=== PATIENT | male | born 1935 | race Caucasian/White ===

== ENCOUNTER 2019-06-28 10:33 | Inpatient (IN) ==
[2019-06-28] MEDS ORDERED: Dextrose Gel 15 GM/37.5 ML TUBE PO PRN ×2 (16:52)
[2019-06-28] MEDS ORDERED: *HR* Dextrose 50 % in Water (Vial) 50 ML VIAL IVP PRN (16:52)
[2019-06-28] MEDS ORDERED: D5% in Water 1,000 ML IVC PRN (16:52)
[2019-06-28] MEDS ORDERED: Warfarin perPT PO PRN (18:00)
[2019-06-28] MEDS: *HR* Metformin 500 MG TABLET PO SCH (18:02)
[2019-06-28] MEDS ORDERED: *HR* Warfarin 3 MG TABLET PO ONE (20:15)
[2019-06-28] MEDS: Lisinopril 20 MG TABLET PO SCH (20:44)
[2019-06-28] MEDS: Ascorbic Acid 500 MG TABLET PO SCH (20:44)
[2019-06-28] MEDS: *HR* Glimepiride 2 MG TABLET PO SCH (20:44)
[2019-06-28] MEDS: Insulin LISPRO 300 UNITS/3 ML VIAL SQ SCH (20:46)
[2019-06-28] MEDS: Patient Taking Own Medication 1 EACH PO SCH (21:43)
[2019-06-29 06:01] LABS: Basophils % 0.1 %; Eosinophils % 0.2 %; Hematocrit 28.4 % (37.5-50.1); Hemoglobin 9.2 g/dL (12.9-16.9); Lymphocytes # 1.3 K/mcL (0.6-4.6); Lymphocytes % 8.1 %; Mean Corpuscular HGB Conc 32.4 g/dL (31.6-35.5); Mean Corpuscular Hemoglobin 31.5 pg (28.0-33.3); Mean Corpuscular Volume 97.3 fL (83.0-100.0); Mean Platelet Volume 11.1 fL (9.4-12.4); Monocytes # 1.1 K/mcL (0.0-1.3); Monocytes % 6.9 %; Neutrophils # 13.3 K/mcL (1.6-8.9); Platelet Count 225 K/mcL (140-400); Red Blood Count 2.92 M/mcL (4.19-5.50); Red Cell Distribution Width 12.5 % (11.5-14.5); Segmented Neutrophils % 83.7 %; White Blood Count 15.9 K/mcL (4.3-11.1)
[2019-06-29 06:08] LABS: INR 1.4; Prothrombin Time 15.4 Seconds (9.4-12.1)
[2019-06-29 06:19] LABS: BUN/Creatinine Ratio 15 (6-26); Blood Urea Nitrogen 13 mg/dL (8-23); Calcium 8.2 mg/dL (8.6-10.3); Carbon Dioxide 32 mEq/L (23-29); Chloride 99 mEq/L (98-107); Glucose 171 mg/dL (70-105); Magnesium 1.8 mg/dL (1.6-2.6); Osmolality,Calculated 288 (280-300); Potassium 3.9 mEq/L (3.5-5.1); Sodium 137 mEq/L (136-145); eGFR For African Americans > 60 (> 60); eGFR For Non-African Americans > 60 (> 60)
[2019-06-29] MEDS: Aspirin 81 MG TAB.CHEW PO SCH (08:15)
[2019-06-29] MEDS: Cholecalciferol (D-3) 1,000 UNIT (25MCG) TABLET PO SCH (08:15)
[2019-06-29] MEDS: Lisinopril 20 MG TABLET PO SCH ×2 (08:15→21:23)
[2019-06-29] MEDS: amLODIPine 5 MG TABLET PO SCH (08:15)
[2019-06-29] MEDS: *HR* Metformin 500 MG TABLET PO SCH ×2 (08:15→17:10)
[2019-06-29] MEDS: *HR* Glimepiride 2 MG TABLET PO SCH ×2 (08:15→21:23)
[2019-06-29] MEDS: Ascorbic Acid 500 MG TABLET PO SCH ×2 (08:16→21:23)
[2019-06-29] MEDS: Patient Taking Own Medication 1 EACH PO SCH ×2 (08:17→21:23)
[2019-06-29] MEDS: Insulin LISPRO 300 UNITS/3 ML VIAL SQ SCH ×4 (08:18→21:25)
[2019-06-29 09:01] LABS: Estimated Average Glucose 258 mg/dl
[2019-06-29] MEDS: Ondansetron ODT 4 MG TAB.RAPDIS SL PRN (14:44)
[2019-06-29] MEDS ORDERED: *HR* Warfarin 5 MG TABLET PO ONE (18:00)
[2019-06-30 05:27] LABS: INR 1.4; Prothrombin Time 16.2 Seconds (9.4-12.1)
[2019-06-30] MEDS: Ascorbic Acid 500 MG TABLET PO SCH ×2 (08:50→23:45)
[2019-06-30] MEDS: amLODIPine 5 MG TABLET PO SCH (08:50)
[2019-06-30] MEDS: Cholecalciferol (D-3) 1,000 UNIT (25MCG) TABLET PO SCH (08:50)
[2019-06-30] MEDS: *HR* Metformin 500 MG TABLET PO SCH ×2 (08:50→17:58)
[2019-06-30] MEDS: *HR* Glimepiride 2 MG TABLET PO SCH ×2 (08:50→23:45)
[2019-06-30] MEDS: Aspirin 81 MG TAB.CHEW PO SCH (08:51)
[2019-06-30] MEDS: Patient Taking Own Medication 1 EACH PO SCH ×2 (08:53→23:47)
[2019-06-30] MEDS: Insulin LISPRO 300 UNITS/3 ML VIAL SQ SCH ×4 (08:53→23:46)
[2019-06-30] MEDS: Lisinopril 20 MG TABLET PO SCH ×2 (08:54→23:45)
[2019-06-30] MEDS ORDERED: Bisacodyl 10 MG RECTAL SUPPOSITORY RC PRN (08:55)
[2019-06-30] MEDS ORDERED: *HR* Metformin 500 MG TABLET PO ONE (10:15)
[2019-06-30] MEDS: Sennosides 8.6 MG TABLET PO SCH ×2 (15:42→23:45)
[2019-06-30] MEDS: Ondansetron ODT 4 MG TAB.RAPDIS SL PRN (15:54)
[2019-06-30] MEDS ORDERED: *HR* Warfarin 7.5 MG TABLET PO ONE (18:00)
[2019-07-01] MEDS: *HR* HYDROcodone/Acet 5/325 mg TABLET PO PRN (03:24)
[2019-07-01] MEDS: Ondansetron ODT 4 MG TAB.RAPDIS SL PRN ×2 (03:24→12:02)
[2019-07-01] MEDS: Insulin LISPRO 300 UNITS/3 ML VIAL SQ SCH ×4 (08:50→21:40)
[2019-07-01] MEDS: Aspirin 81 MG TAB.CHEW PO SCH (09:02)
[2019-07-01] MEDS: Sennosides 8.6 MG TABLET PO SCH (09:02)
[2019-07-01] MEDS: Ascorbic Acid 500 MG TABLET PO SCH ×2 (09:02→21:40)
[2019-07-01] MEDS: *HR* Glimepiride 2 MG TABLET PO SCH ×2 (09:02→21:40)
[2019-07-01] MEDS: Cholecalciferol (D-3) 1,000 UNIT (25MCG) TABLET PO SCH (09:02)
[2019-07-01] MEDS: *HR* Metformin 500 MG TABLET PO SCH ×2 (09:02→18:33)
[2019-07-01] MEDS: Lisinopril 20 MG TABLET PO SCH ×2 (09:03→21:40)
[2019-07-01] MEDS: amLODIPine 5 MG TABLET PO SCH (09:03)
[2019-07-01] MEDS: Patient Taking Own Medication 1 EACH PO SCH (09:09)
[2019-07-01 10:07] LABS: INR 1.6; Prothrombin Time 18.2 Seconds (9.4-12.1)
[2019-07-01 12:42] LABS: Basophils % 0.1 %; Eosinophils % 0.3 %; Hematocrit 29.5 % (37.5-50.1); Hemoglobin 9.4 g/dL (12.9-16.9); Immature Granulocytes % 0.7 % (0-4); Lymphocytes # 0.9 K/mcL (0.6-4.6); Lymphocytes % 6.5 %; Mean Corpuscular HGB Conc 31.9 g/dL (31.6-35.5); Mean Corpuscular Volume 97.4 fL (83.0-100.0); Monocytes % 7.4 %; Neutrophils # 11.9 K/mcL (1.6-8.9); Platelet Count 290 K/mcL (140-400); Red Blood Count 3.03 M/mcL (4.19-5.50)
[2019-07-01] MEDS ORDERED: *HR* Warfarin 5 MG TABLET PO ONE (18:00)
[2019-07-02] MEDS: Patient Taking Own Medication 1 EACH PO SCH ×3 (01:27→21:23)
[2019-07-02] MEDS: Sennosides 8.6 MG TABLET PO SCH ×3 (01:28→21:23)
[2019-07-02 05:36] LABS: INR 2.3; Prothrombin Time 26.5 Seconds (9.4-12.1)
[2019-07-02] MEDS: Ondansetron ODT 4 MG TAB.RAPDIS SL PRN ×3 (07:28→23:58)
[2019-07-02] MEDS: Insulin LISPRO 300 UNITS/3 ML VIAL SQ SCH ×4 (07:38→21:22)
[2019-07-02] MEDS: Aspirin 81 MG TAB.CHEW PO SCH (09:03)
[2019-07-02] MEDS: amLODIPine 5 MG TABLET PO SCH (09:03)
[2019-07-02] MEDS: Lisinopril 20 MG TABLET PO SCH ×2 (09:04→21:22)
[2019-07-02] MEDS: *HR* Metformin 500 MG TABLET PO SCH ×2 (09:06→17:33)
[2019-07-02] MEDS: *HR* Glimepiride 2 MG TABLET PO SCH ×2 (09:07→21:22)
[2019-07-02] MEDS: Ascorbic Acid 500 MG TABLET PO SCH ×2 (09:07→21:22)
[2019-07-02] MEDS: Cholecalciferol (D-3) 1,000 UNIT (25MCG) TABLET PO SCH (09:07)
[2019-07-02] MEDS: *HR* HYDROcodone/Acet 5/325 mg TABLET PO PRN (14:29)
[2019-07-02 17:07] LABS: Basophils % 0.2 %; Eosinophils % 0.3 %; Hematocrit 25.7 % (37.5-50.1); Hemoglobin 8.3 g/dL (12.9-16.9); Immature Granulocytes % 0.5 % (0-4); Lymphocytes # 1.2 K/mcL (0.6-4.6); Lymphocytes % 10.7 %; Mean Corpuscular HGB Conc 32.3 g/dL (31.6-35.5); Mean Corpuscular Hemoglobin 31.4 pg (28.0-33.3); Mean Corpuscular Volume 97.3 fL (83.0-100.0); Mean Platelet Volume 10.2 fL (9.4-12.4); Monocytes # 0.9 K/mcL (0.0-1.3); Monocytes % 7.7 %; Neutrophils # 8.9 K/mcL (1.6-8.9); Platelet Count 294 K/mcL (140-400); Red Blood Count 2.64 M/mcL (4.19-5.50); Red Cell Distribution Width 13.2 % (11.5-14.5); Segmented Neutrophils % 80.6 %
[2019-07-02] MEDS ORDERED: *HR* Warfarin 4 MG TABLET PO ONE (18:00)
[2019-07-03 05:57] LABS: Basophils % 0.2 %; Eosinophils % 0.4 %; Hematocrit 26.5 % (37.5-50.1); Hemoglobin 8.5 g/dL (12.9-16.9); Immature Granulocytes % 0.5 % (0-4); Lymphocytes # 1.3 K/mcL (0.6-4.6); Lymphocytes % 11.7 %; Mean Corpuscular HGB Conc 32.1 g/dL (31.6-35.5); Mean Corpuscular Hemoglobin 31.1 pg (28.0-33.3); Mean Corpuscular Volume 97.1 fL (83.0-100.0); Mean Platelet Volume 10.5 fL (9.4-12.4); Monocytes # 0.9 K/mcL (0.0-1.3); Monocytes % 8.5 %; Neutrophils # 8.4 K/mcL (1.6-8.9); Platelet Count 308 K/mcL (140-400); Red Blood Count 2.73 M/mcL (4.19-5.50); Red Cell Distribution Width 13.2 % (11.5-14.5); Segmented Neutrophils % 78.7 %; White Blood Count 10.7 K/mcL (4.3-11.1)
[2019-07-03 06:00] LABS: INR 2.7; Prothrombin Time 30.7 Seconds (9.4-12.1)
[2019-07-03 06:12] LABS: BUN/Creatinine Ratio 19 (6-26); Blood Urea Nitrogen 19 mg/dL (8-23); Calcium 8.2 mg/dL (8.6-10.3); Carbon Dioxide 30 mEq/L (23-29); Chloride 99 mEq/L (98-107); Glucose 132 mg/dL (70-105); Osmolality,Calculated 284 (280-300); Potassium 4.4 mEq/L (3.5-5.1); Sodium 135 mEq/L (136-145); eGFR For African Americans > 60 (> 60); eGFR For Non-African Americans > 60 (> 60)
[2019-07-03] MEDS: Insulin LISPRO 300 UNITS/3 ML VIAL SQ SCH ×4 (07:57→20:57)
[2019-07-03] MEDS: Ondansetron ODT 4 MG TAB.RAPDIS SL PRN ×2 (08:27→20:10)
[2019-07-03] MEDS: Ascorbic Acid 500 MG TABLET PO SCH ×2 (09:41→20:10)
[2019-07-03] MEDS: *HR* Metformin 500 MG TABLET PO SCH ×2 (09:41→16:46)
[2019-07-03] MEDS: Cholecalciferol (D-3) 1,000 UNIT (25MCG) TABLET PO SCH (09:41)
[2019-07-03] MEDS: *HR* Glimepiride 2 MG TABLET PO SCH (09:41)
[2019-07-03] MEDS: Sennosides 8.6 MG TABLET PO SCH ×2 (09:41→20:10)
[2019-07-03] MEDS: Lisinopril 20 MG TABLET PO SCH ×2 (09:41→20:10)
[2019-07-03] MEDS: Aspirin 81 MG TAB.CHEW PO SCH (09:41)
[2019-07-03] MEDS: amLODIPine 5 MG TABLET PO SCH (09:41)
[2019-07-03] MEDS: Patient Taking Own Medication 1 EACH PO SCH ×2 (09:44→21:00)
[2019-07-03] MEDS: 0.9 % Sodium Chloride 1,000 ML IVC SCH (12:54)
[2019-07-03] MEDS ORDERED: *HR* Warfarin 3 MG TABLET PO ONE (18:00)
[2019-07-03] MEDS: Sucralfate 1 GM TABLET PO SCH (20:10)
[2019-07-03 21:23] LABS: Amorphous Sediment,Urine Few per hpf (Few); Bilirubin,Urine Negative (Negative); Blood,Urine Negative (Negative); Clarity,Urine Slightly Cloudy (Clear); Color,Urine Yellow (Yellow); Glucose,Urine (UA) 100 mg/dL (Normal); Ketones,Urine Negative (Negative); Leukocyte Esterase,Urine Negative (Negative); Nitrite,Urine Negative (Negative); Protein,Urine Trace mg/dL (Neg-Trace); Specific Gravity,Urine 1.025 (1.010-1.025)
[2019-07-04] MEDS: 0.9 % Sodium Chloride 1,000 ML IVC SCH ×2 (03:37→15:03)
[2019-07-04 05:32] LABS: Hematocrit 26.8 % (37.5-50.1); Hemoglobin 8.4 g/dL (12.9-16.9); Mean Corpuscular HGB Conc 31.3 g/dL (31.6-35.5); Mean Corpuscular Hemoglobin 30.8 pg (28.0-33.3); Mean Corpuscular Volume 98.2 fL (83.0-100.0); Mean Platelet Volume 10.3 fL (9.4-12.4); Platelet Count 320 K/mcL (140-400); Red Blood Count 2.73 M/mcL (4.19-5.50); Red Cell Distribution Width 13.2 % (11.5-14.5); White Blood Count 8.8 K/mcL (4.3-11.1)
[2019-07-04 05:36] LABS: INR 3.1; Prothrombin Time 35.8 Seconds (9.4-12.1)
[2019-07-04 05:49] LABS: Alanine Aminotransferase 13 Units/L (7-52); Albumin 2.7 g/dL (3.5-5.7); Albumin/Globulin Ratio 0.8 (1.1-2.2); Alkaline Phosphatase 107 Units/L (34-104); Aspartate Amino Transferase 13 Units/L (13-39); BUN/Creatinine Ratio 18 (6-26); Bilirubin,Total 0.3 mg/dL (0.3-1.0); Blood Urea Nitrogen 19 mg/dL (8-23); Calcium 8.2 mg/dL (8.6-10.3); Carbon Dioxide 33 mEq/L (23-29); Chloride 103 mEq/L (98-107); Globulin 3.3 g/dL (2.4-3.5); Glucose 125 mg/dL (70-105); Magnesium 1.8 mg/dL (1.6-2.6); Osmolality,Calculated 292 (280-300); Potassium 4.6 mEq/L (3.5-5.1); Sodium 139 mEq/L (136-145); eGFR For African Americans > 60 (> 60); eGFR For Non-African Americans > 60 (> 60)
[2019-07-04] MEDS: Sucralfate 1 GM TABLET PO SCH ×4 (06:03→22:35)
[2019-07-04] MEDS: Insulin LISPRO 300 UNITS/3 ML VIAL SQ SCH ×4 (08:00→22:31)
[2019-07-04] MEDS: Patient Taking Own Medication 1 EACH PO SCH ×2 (08:51→22:43)
[2019-07-04] MEDS: Pantoprazole 40 MG VIAL IVP SCH (08:51)
[2019-07-04] MEDS: Ondansetron ODT 4 MG TAB.RAPDIS SL PRN (08:52)
[2019-07-04] MEDS: Ascorbic Acid 500 MG TABLET PO SCH ×2 (10:19→22:35)
[2019-07-04] MEDS: Cholecalciferol (D-3) 1,000 UNIT (25MCG) TABLET PO SCH (10:19)
[2019-07-04] MEDS: Aspirin 81 MG TAB.CHEW PO SCH (10:40)
[2019-07-04] MEDS: Lisinopril 20 MG TABLET PO SCH ×2 (10:40→22:36)
[2019-07-04] MEDS: Sennosides 8.6 MG TABLET PO SCH ×2 (10:40→22:36)
[2019-07-04] MEDS: amLODIPine 5 MG TABLET PO SCH (10:40)
[2019-07-04] MEDS: Nystatin SUSP 5 ML UD.LIQ PO SCH ×2 (15:42→22:36)
[2019-07-04] MEDS: Doxycycline 100 MG CAPSULE PO SCH ×2 (15:42→22:34)
[2019-07-04] MEDS: *HR* HYDROcodone/Acet 5/325 mg TABLET PO PRN (22:37)
[2019-07-05 05:53] LABS: Prothrombin Time 34.3 Seconds (9.4-12.1)
[2019-07-05 05:55] LABS: Basophils % 0.4 %; Eosinophils # 0.1 K/mcL (0.0-0.6); Eosinophils % 1.4 %; Hematocrit 26.2 % (37.5-50.1); Hemoglobin 8.4 g/dL (12.9-16.9); Immature Granulocytes % 0.3 % (0-4); Lymphocytes % 12.1 %; Mean Corpuscular HGB Conc 32.1 g/dL (31.6-35.5); Mean Corpuscular Hemoglobin 31.1 pg (28.0-33.3); Mean Platelet Volume 10.5 fL (9.4-12.4); Monocytes # 0.9 K/mcL (0.0-1.3); Monocytes % 11.6 %; Neutrophils # 5.9 K/mcL (1.6-8.9); Platelet Count 334 K/mcL (140-400); Red Cell Distribution Width 13.3 % (11.5-14.5); Segmented Neutrophils % 74.2 %
[2019-07-05] MEDS: Lisinopril 20 MG TABLET PO SCH ×2 (08:47→22:01)
[2019-07-05] MEDS: Nystatin SUSP 5 ML UD.LIQ PO SCH ×4 (08:47→22:01)
[2019-07-05] MEDS: Sucralfate 1 GM TABLET PO SCH ×4 (08:47→21:59)
[2019-07-05] MEDS: Cholecalciferol (D-3) 1,000 UNIT (25MCG) TABLET PO SCH (08:47)
[2019-07-05] MEDS: Sennosides 8.6 MG TABLET PO SCH ×2 (08:47→22:02)
[2019-07-05] MEDS: Doxycycline 100 MG CAPSULE PO SCH ×2 (08:47→22:01)
[2019-07-05] MEDS: Aspirin 81 MG TAB.CHEW PO SCH (08:47)
[2019-07-05] MEDS: Ascorbic Acid 500 MG TABLET PO SCH ×2 (08:47→21:54)
[2019-07-05] MEDS: amLODIPine 5 MG TABLET PO SCH (08:47)
[2019-07-05] MEDS: Pantoprazole 40 MG VIAL IVP SCH (08:48)
[2019-07-05] MEDS: Patient Taking Own Medication 1 EACH PO SCH ×2 (08:48→22:02)
[2019-07-05] MEDS: Insulin LISPRO 300 UNITS/3 ML VIAL SQ SCH ×4 (08:48→21:58)
[2019-07-05] MEDS ORDERED: *HR* Warfarin 3 MG TABLET PO ONE (18:00)
[2019-07-05] MEDS: *HR* Glimepiride 2 MG TABLET PO SCH (21:57)
[2019-07-06 06:22] LABS: INR 3.2; Prothrombin Time 36.4 Seconds (9.4-12.1)
[2019-07-06] MEDS: Pantoprazole 40 MG VIAL IVP SCH (09:27)
[2019-07-06] MEDS: Doxycycline 100 MG CAPSULE PO SCH ×2 (09:27→21:28)
[2019-07-06] MEDS: Aspirin 81 MG TAB.CHEW PO SCH (09:27)
[2019-07-06] MEDS: Ascorbic Acid 500 MG TABLET PO SCH ×2 (09:27→21:28)
[2019-07-06] MEDS: Sennosides 8.6 MG TABLET PO SCH ×2 (09:28→21:27)
[2019-07-06] MEDS: Lisinopril 20 MG TABLET PO SCH ×2 (09:28→21:27)
[2019-07-06] MEDS: *HR* Glimepiride 2 MG TABLET PO SCH ×2 (09:28→21:27)
[2019-07-06] MEDS: Nystatin SUSP 5 ML UD.LIQ PO SCH ×4 (09:28→21:27)
[2019-07-06] MEDS: Cholecalciferol (D-3) 1,000 UNIT (25MCG) TABLET PO SCH (09:28)
[2019-07-06] MEDS: Sucralfate 1 GM TABLET PO SCH ×4 (09:28→21:28)
[2019-07-06] MEDS: amLODIPine 5 MG TABLET PO SCH (09:28)
[2019-07-06] MEDS: *HR* Metformin 500 MG TABLET PO SCH ×2 (09:28→17:34)
[2019-07-06] MEDS: Patient Taking Own Medication 1 EACH PO SCH ×2 (09:28→21:29)
[2019-07-06] MEDS: Insulin LISPRO 300 UNITS/3 ML VIAL SQ SCH ×4 (09:45→21:24)
[2019-07-06 12:16] LABS: Basophils % 0.2 %; Hematocrit 29.7 % (37.5-50.1); Hemoglobin 9.5 g/dL (12.9-16.9); Immature Granulocytes % 0.4 % (0-4); Lymphocytes # 0.6 K/mcL (0.6-4.6); Lymphocytes % 6.4 %; Mean Corpuscular Hemoglobin 31.5 pg (28.0-33.3); Mean Corpuscular Volume 98.3 fL (83.0-100.0); Mean Platelet Volume 10.5 fL (9.4-12.4); Monocytes # 0.7 K/mcL (0.0-1.3); Monocytes % 7.2 %; Neutrophils # 8.4 K/mcL (1.6-8.9); Platelet Count 397 K/mcL (140-400); Red Blood Count 3.02 M/mcL (4.19-5.50); Red Cell Distribution Width 13.4 % (11.5-14.5); Segmented Neutrophils % 85.8 %; White Blood Count 9.8 K/mcL (4.3-11.1)
[2019-07-06 12:29] LABS: BUN/Creatinine Ratio 21 (6-26); Blood Urea Nitrogen 27 mg/dL (8-23); Calcium 8.5 mg/dL (8.6-10.3); Carbon Dioxide 27 mEq/L (23-29); Chloride 98 mEq/L (98-107); Glucose 351 mg/dL (70-105); Osmolality,Calculated 295 (280-300); Potassium 4.4 mEq/L (3.5-5.1); Sodium 133 mEq/L (136-145); eGFR For African Americans > 60 (> 60); eGFR For Non-African Americans 52 (> 60)
[2019-07-07 05:48] LABS: INR 2.9; Prothrombin Time 33.2 Seconds (9.4-12.1)
[2019-07-07] MEDS: Sennosides 8.6 MG TABLET PO SCH ×2 (08:14→20:58)
[2019-07-07] MEDS: Cholecalciferol (D-3) 1,000 UNIT (25MCG) TABLET PO SCH (08:14)
[2019-07-07] MEDS: Sucralfate 1 GM TABLET PO SCH ×4 (08:15→20:58)
[2019-07-07] MEDS: Ascorbic Acid 500 MG TABLET PO SCH ×2 (08:15→20:58)
[2019-07-07] MEDS: Doxycycline 100 MG CAPSULE PO SCH ×2 (08:16→20:58)
[2019-07-07] MEDS: amLODIPine 5 MG TABLET PO SCH (08:17)
[2019-07-07] MEDS: *HR* Metformin 500 MG TABLET PO SCH ×2 (08:18→17:32)
[2019-07-07] MEDS: *HR* Glimepiride 2 MG TABLET PO SCH ×2 (08:19→20:58)
[2019-07-07] MEDS: Aspirin 81 MG TAB.CHEW PO SCH (08:19)
[2019-07-07] MEDS: Lisinopril 20 MG TABLET PO SCH ×2 (08:20→20:58)
[2019-07-07] MEDS: Insulin LISPRO 300 UNITS/3 ML VIAL SQ SCH ×4 (08:20→21:06)
[2019-07-07] MEDS: Nystatin SUSP 5 ML UD.LIQ PO SCH ×4 (08:20→20:58)
[2019-07-07] MEDS: Patient Taking Own Medication 1 EACH PO SCH ×2 (08:21→21:07)
[2019-07-07] MEDS: Ondansetron ODT 4 MG TAB.RAPDIS SL PRN (10:52)
[2019-07-07] MEDS ORDERED: *HR* Warfarin 3 MG TABLET PO ONE (18:00)
[2019-07-08 06:32] LABS: Prothrombin Time 34.7 Seconds (9.4-12.1)
[2019-07-08] MEDS: Sucralfate 1 GM TABLET PO SCH ×2 (06:40→11:52)
[2019-07-08] MEDS: Insulin LISPRO 300 UNITS/3 ML VIAL SQ SCH ×4 (08:56→20:54)
[2019-07-08] MEDS: Patient Taking Own Medication 1 EACH PO SCH ×2 (08:57→21:03)
[2019-07-08] MEDS: Aspirin 81 MG TAB.CHEW PO SCH (09:04)
[2019-07-08] MEDS: Nystatin SUSP 5 ML UD.LIQ PO SCH ×4 (09:04→21:04)
[2019-07-08] MEDS: *HR* Glimepiride 2 MG TABLET PO SCH ×2 (09:04→21:04)
[2019-07-08] MEDS: amLODIPine 5 MG TABLET PO SCH (09:04)
[2019-07-08] MEDS: Doxycycline 100 MG CAPSULE PO SCH ×2 (09:04→21:04)
[2019-07-08] MEDS: *HR* Metformin 500 MG TABLET PO SCH ×2 (09:04→17:20)
[2019-07-08] MEDS: Ascorbic Acid 500 MG TABLET PO SCH ×2 (09:05→21:04)
[2019-07-08] MEDS: Cholecalciferol (D-3) 1,000 UNIT (25MCG) TABLET PO SCH (09:05)
[2019-07-08] MEDS: Lisinopril 20 MG TABLET PO SCH ×2 (09:05→21:04)
[2019-07-08] MEDS: Sennosides 8.6 MG TABLET PO SCH (09:05)
[2019-07-08] MEDS ORDERED: Sennosides 8.6 MG TABLET PO PRN (13:31)
[2019-07-08] MEDS ORDERED: *HR* Warfarin 3 MG TABLET PO ONE (18:00)
[2019-07-08] MEDS: Ondansetron ODT 4 MG TAB.RAPDIS SL PRN (21:08)
[2019-07-09 05:33] LABS: Hematocrit 26.5 % (37.5-50.1); Hemoglobin 8.2 g/dL (12.9-16.9); Mean Corpuscular HGB Conc 30.9 g/dL (31.6-35.5); Mean Corpuscular Hemoglobin 30.3 pg (28.0-33.3); Mean Corpuscular Volume 97.8 fL (83.0-100.0); Mean Platelet Volume 9.9 fL (9.4-12.4); Platelet Count 374 K/mcL (140-400); Red Blood Count 2.71 M/mcL (4.19-5.50); Red Cell Distribution Width 13.7 % (11.5-14.5)
[2019-07-09 05:38] LABS: INR 2.7; Prothrombin Time 30.8 Seconds (9.4-12.1)
[2019-07-09 05:50] LABS: BUN/Creatinine Ratio 27 (6-26); Blood Urea Nitrogen 28 mg/dL (8-23); Calcium 8.5 mg/dL (8.6-10.3); Carbon Dioxide 31 mEq/L (23-29); Chloride 101 mEq/L (98-107); Glucose 73 mg/dL (70-105); Magnesium 1.6 mg/dL (1.6-2.6); Osmolality,Calculated 290 (280-300); Potassium 4.2 mEq/L (3.5-5.1); Sodium 138 mEq/L (136-145); eGFR For African Americans > 60 (> 60); eGFR For Non-African Americans > 60 (> 60)
[2019-07-09] MEDS: Insulin LISPRO 300 UNITS/3 ML VIAL SQ SCH ×4 (09:49→21:54)
[2019-07-09] MEDS: Nystatin SUSP 5 ML UD.LIQ PO SCH ×4 (09:50→22:00)
[2019-07-09] MEDS: amLODIPine 5 MG TABLET PO SCH (09:50)
[2019-07-09] MEDS: Aspirin 81 MG TAB.CHEW PO SCH (09:50)
[2019-07-09] MEDS: Ascorbic Acid 500 MG TABLET PO SCH ×2 (09:50→21:59)
[2019-07-09] MEDS: Doxycycline 100 MG CAPSULE PO SCH ×2 (09:50→21:59)
[2019-07-09] MEDS: *HR* Metformin 500 MG TABLET PO SCH ×2 (09:50→17:37)
[2019-07-09] MEDS: Cholecalciferol (D-3) 1,000 UNIT (25MCG) TABLET PO SCH (09:51)
[2019-07-09] MEDS: *HR* Glimepiride 2 MG TABLET PO SCH ×2 (09:51→22:00)
[2019-07-09] MEDS: Patient Taking Own Medication 1 EACH PO SCH ×2 (09:51→22:00)
[2019-07-09] MEDS: Lisinopril 20 MG TABLET PO SCH ×2 (09:51→21:59)
[2019-07-09 15:53] LABS: Estimated Average Glucose 240 mg/dl
[2019-07-09] MEDS ORDERED: *HR* Warfarin 3 MG TABLET PO ONE (18:00)
[2019-07-09] MEDS: Ondansetron ODT 4 MG TAB.RAPDIS SL PRN (22:06)
[2019-07-10 05:43] LABS: INR 2.4; Prothrombin Time 27.2 Seconds (9.4-12.1)
[2019-07-10] MEDS: Insulin LISPRO 300 UNITS/3 ML VIAL SQ SCH ×4 (07:52→23:03)
[2019-07-10] MEDS: Doxycycline 100 MG CAPSULE PO SCH ×2 (09:11→23:02)
[2019-07-10] MEDS: amLODIPine 5 MG TABLET PO SCH (09:11)
[2019-07-10] MEDS: Aspirin 81 MG TAB.CHEW PO SCH (09:11)
[2019-07-10] MEDS: Lisinopril 20 MG TABLET PO SCH ×2 (09:11→23:03)
[2019-07-10] MEDS: Nystatin SUSP 5 ML UD.LIQ PO SCH ×4 (09:11→23:00)
[2019-07-10] MEDS: Patient Taking Own Medication 1 EACH PO SCH ×2 (09:12→23:02)
[2019-07-10] MEDS: *HR* Metformin 500 MG TABLET PO SCH ×2 (09:12→17:20)
[2019-07-10] MEDS: *HR* Glimepiride 2 MG TABLET PO SCH ×2 (09:12→23:02)
[2019-07-10] MEDS: Cholecalciferol (D-3) 1,000 UNIT (25MCG) TABLET PO SCH (09:12)
[2019-07-10] MEDS: Ascorbic Acid 500 MG TABLET PO SCH ×2 (09:12→23:02)
[2019-07-10] MEDS: Ondansetron 4 MG/2 ML VIAL IVP PRN ×2 (13:09→20:22)
[2019-07-10] MEDS: Ondansetron ODT 4 MG TAB.RAPDIS SL PRN (17:32)
[2019-07-10] MEDS: Sucralfate 1 GM TABLET PO SCH ×2 (17:32→23:01)
[2019-07-10] MEDS ORDERED: *HR* Warfarin 3 MG TABLET PO ONE (18:00)
[2019-07-11] MEDS: Ondansetron ODT 4 MG TAB.RAPDIS SL PRN ×2 (05:19→23:11)
[2019-07-11] MEDS: *HR* HYDROcodone/Acet 5/325 mg TABLET PO PRN (05:19)
[2019-07-11 05:47] LABS: Hematocrit 26.3 % (37.5-50.1); Hemoglobin 8.3 g/dL (12.9-16.9); Mean Corpuscular HGB Conc 31.6 g/dL (31.6-35.5); Mean Corpuscular Hemoglobin 30.5 pg (28.0-33.3); Mean Corpuscular Volume 96.7 fL (83.0-100.0); Mean Platelet Volume 10.3 fL (9.4-12.4); Platelet Count 366 K/mcL (140-400); Red Blood Count 2.72 M/mcL (4.19-5.50); Red Cell Distribution Width 13.8 % (11.5-14.5); White Blood Count 6.9 K/mcL (4.3-11.1)
[2019-07-11 05:48] LABS: INR 2.5; Prothrombin Time 28.4 Seconds (9.4-12.1)
[2019-07-11 06:01] LABS: BUN/Creatinine Ratio 24 (6-26); Blood Urea Nitrogen 27 mg/dL (8-23); Calcium 8.5 mg/dL (8.6-10.3); Carbon Dioxide 31 mEq/L (23-29); Chloride 102 mEq/L (98-107); Glucose 67 mg/dL (70-105); Magnesium 1.6 mg/dL (1.6-2.6); Osmolality,Calculated 291 (280-300); Potassium 4.1 mEq/L (3.5-5.1); Sodium 139 mEq/L (136-145); eGFR For African Americans > 60 (> 60); eGFR For Non-African Americans > 60 (> 60)
[2019-07-11] MEDS: Insulin LISPRO 300 UNITS/3 ML VIAL SQ SCH ×4 (07:46→23:12)
[2019-07-11] MEDS: Sucralfate 1 GM TABLET PO SCH ×4 (08:48→23:10)
[2019-07-11] MEDS: Lisinopril 20 MG TABLET PO SCH ×2 (08:48→23:11)
[2019-07-11] MEDS: *HR* Metformin 500 MG TABLET PO SCH ×2 (08:48→17:27)
[2019-07-11] MEDS: Aspirin 81 MG TAB.CHEW PO SCH (08:48)
[2019-07-11] MEDS: amLODIPine 5 MG TABLET PO SCH (08:48)
[2019-07-11] MEDS: Cholecalciferol (D-3) 1,000 UNIT (25MCG) TABLET PO SCH (08:48)
[2019-07-11] MEDS: Patient Taking Own Medication 1 EACH PO SCH ×3 (08:48→23:12)
[2019-07-11] MEDS: Doxycycline 100 MG CAPSULE PO SCH (08:48)
[2019-07-11] MEDS: Ascorbic Acid 500 MG TABLET PO SCH ×2 (08:48→23:11)
[2019-07-11] MEDS: Nystatin SUSP 5 ML UD.LIQ PO SCH ×4 (08:48→23:10)
[2019-07-11] MEDS: *HR* Glimepiride 2 MG TABLET PO SCH ×2 (08:48→23:12)
[2019-07-11 09:37] LABS: % Iron Saturation 12 % (20-55); Iron 28 mcg/dL (65-175); Transferrin 168 mg/dL (203-362)
[2019-07-11 09:55] LABS: Folate 19.9 ng/mL (3.0-16.0)
[2019-07-11 17:09] LABS: Bilirubin,Urine Negative (Negative); Blood,Urine Negative (Negative); Clarity,Urine Clear (Clear); Color,Urine Yellow (Yellow); Glucose,Urine (UA) Normal (Normal); Ketones,Urine Negative (Negative); Leukocyte Esterase,Urine Negative (Negative); Nitrite,Urine Negative (Negative); Protein,Urine Trace mg/dL (Neg-Trace); Specific Gravity,Urine 1.025 (1.010-1.025); Urobilinogen,Urine Normal (Normal)
[2019-07-11] MEDS ORDERED: *HR* Warfarin 3 MG TABLET PO ONE (18:00)
[2019-07-12 05:26] LABS: INR 2.9; Prothrombin Time 32.5 Seconds (9.4-12.1)
[2019-07-12] MEDS: Sucralfate 1 GM TABLET PO SCH ×4 (06:42→21:09)
[2019-07-12] MEDS: Insulin LISPRO 300 UNITS/3 ML VIAL SQ SCH ×4 (07:55→21:09)
[2019-07-12] MEDS: Aspirin 81 MG TAB.CHEW PO SCH (09:16)
[2019-07-12] MEDS: Nystatin SUSP 5 ML UD.LIQ PO SCH ×4 (09:16→20:58)
[2019-07-12] MEDS: amLODIPine 5 MG TABLET PO SCH (09:17)
[2019-07-12] MEDS: Lisinopril 20 MG TABLET PO SCH ×2 (09:17→21:09)
[2019-07-12] MEDS: Cholecalciferol (D-3) 1,000 UNIT (25MCG) TABLET PO SCH (09:17)
[2019-07-12] MEDS: Ascorbic Acid 500 MG TABLET PO SCH ×2 (09:17→21:09)
[2019-07-12] MEDS: *HR* Glimepiride 2 MG TABLET PO SCH ×2 (09:17→21:10)
[2019-07-12] MEDS: Ondansetron ODT 4 MG TAB.RAPDIS SL PRN (09:17)
[2019-07-12] MEDS: *HR* Metformin 500 MG TABLET PO SCH ×2 (09:17→17:25)
[2019-07-12] MEDS: Patient Taking Own Medication 1 EACH PO SCH ×2 (09:17→21:10)
[2019-07-12] MEDS ORDERED: *HR* Warfarin 3 MG TABLET PO ONE (18:00)
[2019-07-13] MEDS: Sucralfate 1 GM TABLET PO SCH ×4 (05:33→21:43)
[2019-07-13 06:11] LABS: Prothrombin Time 33.9 Seconds (9.4-12.1)
[2019-07-13] MEDS: Insulin LISPRO 300 UNITS/3 ML VIAL SQ SCH ×4 (08:51→21:45)
[2019-07-13] MEDS: *HR* Glimepiride 2 MG TABLET PO SCH ×2 (10:22→21:42)
[2019-07-13] MEDS: Aspirin 81 MG TAB.CHEW PO SCH (10:22)
[2019-07-13] MEDS: Ascorbic Acid 500 MG TABLET PO SCH ×2 (10:22→21:43)
[2019-07-13] MEDS: amLODIPine 5 MG TABLET PO SCH (10:22)
[2019-07-13] MEDS: Lisinopril 20 MG TABLET PO SCH ×2 (10:22→21:43)
[2019-07-13] MEDS: Cholecalciferol (D-3) 1,000 UNIT (25MCG) TABLET PO SCH (10:22)
[2019-07-13] MEDS: Nystatin SUSP 5 ML UD.LIQ PO SCH ×4 (10:22→21:42)
[2019-07-13] MEDS: *HR* Metformin 500 MG TABLET PO SCH ×2 (10:22→19:01)
[2019-07-13] MEDS: Patient Taking Own Medication 1 EACH PO SCH ×2 (10:23→21:42)
[2019-07-13] MEDS ORDERED: *HR* Warfarin 1 MG TABLET PO ONE (18:00)
[2019-07-13] MEDS: Ondansetron ODT 4 MG TAB.RAPDIS SL PRN (19:02)
[2019-07-14 05:13] LABS: INR 2.7; Prothrombin Time 30.2 Seconds (9.4-12.1)
[2019-07-14] MEDS: Sucralfate 1 GM TABLET PO SCH ×4 (06:31→22:10)
[2019-07-14] MEDS: Insulin LISPRO 300 UNITS/3 ML VIAL SQ SCH ×4 (07:31→22:10)
[2019-07-14] MEDS: Cholecalciferol (D-3) 1,000 UNIT (25MCG) TABLET PO SCH (09:29)
[2019-07-14] MEDS: Lisinopril 20 MG TABLET PO SCH ×2 (09:29→22:09)
[2019-07-14] MEDS: Ascorbic Acid 500 MG TABLET PO SCH ×2 (09:29→22:09)
[2019-07-14] MEDS: *HR* Glimepiride 2 MG TABLET PO SCH ×2 (09:30→22:09)
[2019-07-14] MEDS: Patient Taking Own Medication 1 EACH PO SCH ×2 (09:30→22:10)
[2019-07-14] MEDS: *HR* Metformin 500 MG TABLET PO SCH (09:30)
[2019-07-14] MEDS: Aspirin 81 MG TAB.CHEW PO SCH (09:30)
[2019-07-14] MEDS: amLODIPine 5 MG TABLET PO SCH (09:30)
[2019-07-14] MEDS: Nystatin SUSP 5 ML UD.LIQ PO SCH ×2 (09:30→12:16)
[2019-07-14] MEDS: Ondansetron ODT 4 MG TAB.RAPDIS SL PRN (12:27)
[2019-07-14] MEDS ORDERED: *HR* Warfarin 3 MG TABLET PO ONE (18:00)
[2019-07-15] MEDS: Sucralfate 1 GM TABLET PO SCH ×4 (06:47→20:44)
[2019-07-15] MEDS: Ondansetron ODT 4 MG TAB.RAPDIS SL PRN (06:47)
[2019-07-15 07:38] LABS: INR 2.8; Prothrombin Time 31.7 Seconds (9.4-12.1)
[2019-07-15] MEDS: Insulin LISPRO 300 UNITS/3 ML VIAL SQ SCH ×4 (08:48→20:40)
[2019-07-15] MEDS: Ascorbic Acid 500 MG TABLET PO SCH ×2 (08:54→20:42)
[2019-07-15] MEDS: Cholecalciferol (D-3) 1,000 UNIT (25MCG) TABLET PO SCH (08:54)
[2019-07-15] MEDS: Aspirin 81 MG TAB.CHEW PO SCH (08:54)
[2019-07-15] MEDS: Lisinopril 20 MG TABLET PO SCH ×2 (08:54→20:42)
[2019-07-15] MEDS: amLODIPine 5 MG TABLET PO SCH (08:54)
[2019-07-15] MEDS: *HR* Glimepiride 2 MG TABLET PO SCH ×2 (08:54→20:42)
[2019-07-15] MEDS: Patient Taking Own Medication 1 EACH PO SCH ×2 (08:56→20:46)
[2019-07-15] MEDS ORDERED: Warfarin perPT PO PRN (12:05)
[2019-07-15] MEDS: *HR* Enoxaparin 100 MG/ML SYRINGE SQ SCH (17:56)
[2019-07-16 05:25] LABS: Hematocrit 25.9 % (37.5-50.1); Hemoglobin 8.2 g/dL (12.9-16.9); Mean Corpuscular HGB Conc 31.7 g/dL (31.6-35.5); Mean Corpuscular Hemoglobin 30.5 pg (28.0-33.3); Mean Corpuscular Volume 96.3 fL (83.0-100.0); Platelet Count 327 K/mcL (140-400); Red Blood Count 2.69 M/mcL (4.19-5.50); Red Cell Distribution Width 13.7 % (11.5-14.5); White Blood Count 6.9 K/mcL (4.3-11.1)
[2019-07-16 05:31] LABS: INR 2.3; Prothrombin Time 25.9 Seconds (9.4-12.1)
[2019-07-16 05:46] LABS: Alanine Aminotransferase 9 Units/L (7-52); Albumin 2.9 g/dL (3.5-5.7); Albumin/Globulin Ratio 0.9 (1.1-2.2); Alkaline Phosphatase 85 Units/L (34-104); Aspartate Amino Transferase 10 Units/L (13-39); BUN/Creatinine Ratio 26 (6-26); Bilirubin,Total 0.4 mg/dL (0.3-1.0); Blood Urea Nitrogen 23 mg/dL (8-23); Calcium 8.5 mg/dL (8.6-10.3); Carbon Dioxide 29 mEq/L (23-29); Chloride 104 mEq/L (98-107); Globulin 3.3 g/dL (2.4-3.5); Glucose 82 mg/dL (70-105); Magnesium 1.7 mg/dL (1.6-2.6); Osmolality,Calculated 291 (280-300); Potassium 3.9 mEq/L (3.5-5.1); Sodium 139 mEq/L (136-145); Total Protein 6.2 g/dL (6.4-8.9); eGFR For African Americans > 60 (> 60); eGFR For Non-African Americans > 60 (> 60)
[2019-07-16] MEDS: Ascorbic Acid 500 MG TABLET PO SCH ×2 (07:27→22:20)
[2019-07-16] MEDS: *HR* Enoxaparin 100 MG/ML SYRINGE SQ SCH ×2 (07:27→16:57)
[2019-07-16] MEDS: Cholecalciferol (D-3) 1,000 UNIT (25MCG) TABLET PO SCH (07:28)
[2019-07-16] MEDS: amLODIPine 5 MG TABLET PO SCH (07:28)
[2019-07-16] MEDS: Sucralfate 1 GM TABLET PO SCH ×4 (07:28→22:25)
[2019-07-16] MEDS: *HR* Glimepiride 2 MG TABLET PO SCH ×2 (07:29→22:21)
[2019-07-16] MEDS: Lisinopril 20 MG TABLET PO SCH ×2 (07:29→22:21)
[2019-07-16] MEDS: Patient Taking Own Medication 1 EACH PO SCH ×2 (07:32→22:22)
[2019-07-16] MEDS: Insulin LISPRO 300 UNITS/3 ML VIAL SQ SCH ×4 (11:53→22:09)
[2019-07-17] MEDS: *HR* Enoxaparin 100 MG/ML SYRINGE SQ SCH ×2 (06:41→18:28)
[2019-07-17] MEDS: Insulin LISPRO 300 UNITS/3 ML VIAL SQ SCH ×4 (10:06→20:16)
[2019-07-17] MEDS: Sucralfate 1 GM TABLET PO SCH ×4 (10:06→20:05)
[2019-07-17] MEDS: Cholecalciferol (D-3) 1,000 UNIT (25MCG) TABLET PO SCH (10:07)
[2019-07-17] MEDS: Ascorbic Acid 500 MG TABLET PO SCH ×2 (10:07→20:04)
[2019-07-17] MEDS: *HR* Glimepiride 2 MG TABLET PO SCH ×2 (10:08→20:07)
[2019-07-17] MEDS: amLODIPine 5 MG TABLET PO SCH (10:08)
[2019-07-17] MEDS: Lisinopril 20 MG TABLET PO SCH ×2 (10:08→20:06)
[2019-07-17] MEDS: Patient Taking Own Medication 1 EACH PO SCH ×2 (10:09→20:07)
[2019-07-17] MEDS: Ondansetron ODT 4 MG TAB.RAPDIS SL PRN (22:28)
[2019-07-18] MEDS: *HR* Enoxaparin 100 MG/ML SYRINGE SQ SCH ×2 (06:26→18:24)
[2019-07-18] MEDS: Insulin LISPRO 300 UNITS/3 ML VIAL SQ SCH ×4 (07:34→21:11)
[2019-07-18] MEDS: Sucralfate 1 GM TABLET PO SCH ×4 (07:35→21:16)
[2019-07-18] MEDS: Cholecalciferol (D-3) 1,000 UNIT (25MCG) TABLET PO SCH (09:30)
[2019-07-18] MEDS: Lisinopril 20 MG TABLET PO SCH ×2 (09:30→21:15)
[2019-07-18] MEDS: Ascorbic Acid 500 MG TABLET PO SCH ×2 (09:30→21:15)
[2019-07-18] MEDS: *HR* Glimepiride 2 MG TABLET PO SCH ×2 (09:30→21:15)
[2019-07-18] MEDS: [UNRECOGNIZED DRUG - OTHER] PO SCH ×2 (09:30→21:19)
[2019-07-18] MEDS: amLODIPine 5 MG TABLET PO SCH (09:30)
[2019-07-18 13:52] LABS: Basophils % 0.3 %; Eosinophils % 0.6 %; Hematocrit 26.6 % (37.5-50.1); Hemoglobin 8.4 g/dL (12.9-16.9); Immature Granulocytes % 0.3 % (0-4); Lymphocytes % 16.1 %; Mean Corpuscular HGB Conc 31.6 g/dL (31.6-35.5); Mean Corpuscular Hemoglobin 30.8 pg (28.0-33.3); Mean Corpuscular Volume 97.4 fL (83.0-100.0); Mean Platelet Volume 10.5 fL (9.4-12.4); Monocytes # 0.6 K/mcL (0.0-1.3); Monocytes % 9.9 %; Neutrophils # 4.7 K/mcL (1.6-8.9); Platelet Count 306 K/mcL (140-400); Red Blood Count 2.73 M/mcL (4.19-5.50); Segmented Neutrophils % 72.8 %; White Blood Count 6.5 K/mcL (4.3-11.1)
[2019-07-19] MEDS: Ondansetron ODT 4 MG TAB.RAPDIS SL PRN (04:37)
[2019-07-19] MEDS: *HR* Enoxaparin 100 MG/ML SYRINGE SQ SCH ×2 (04:38→17:36)
[2019-07-19] MEDS: Insulin LISPRO 300 UNITS/3 ML VIAL SQ SCH ×4 (08:10→22:14)
[2019-07-19] MEDS: *HR* Glimepiride 2 MG TABLET PO SCH ×2 (08:11→20:44)
[2019-07-19] MEDS: Cholecalciferol (D-3) 1,000 UNIT (25MCG) TABLET PO SCH (08:11)
[2019-07-19] MEDS: Sucralfate 1 GM TABLET PO SCH ×4 (08:11→20:44)
[2019-07-19] MEDS: amLODIPine 5 MG TABLET PO SCH (08:11)
[2019-07-19] MEDS: Lisinopril 20 MG TABLET PO SCH ×2 (08:11→20:44)
[2019-07-19] MEDS: Ascorbic Acid 500 MG TABLET PO SCH ×2 (08:11→20:44)
[2019-07-19] MEDS: [UNRECOGNIZED DRUG - OTHER] PO SCH ×2 (09:48→20:45)
[2019-07-19] MEDS ORDERED: Cholestyramine 4 GM POWD.PACK PO SCH (11:45)
[2019-07-20] MEDS: Sucralfate 1 GM TABLET PO SCH ×4 (05:23→21:34)
[2019-07-20] MEDS: *HR* Enoxaparin 100 MG/ML SYRINGE SQ SCH ×2 (05:24→17:07)
[2019-07-20] MEDS: Insulin LISPRO 300 UNITS/3 ML VIAL SQ SCH ×4 (07:47→21:36)
[2019-07-20] MEDS: *HR* Glimepiride 2 MG TABLET PO SCH ×2 (08:35→21:34)
[2019-07-20] MEDS: Cholecalciferol (D-3) 1,000 UNIT (25MCG) TABLET PO SCH (08:35)
[2019-07-20] MEDS: amLODIPine 5 MG TABLET PO SCH (08:36)
[2019-07-20] MEDS: [UNRECOGNIZED DRUG - OTHER] PO SCH ×2 (08:36→21:34)
[2019-07-20] MEDS: Ascorbic Acid 500 MG TABLET PO SCH ×2 (08:36→21:34)
[2019-07-20] MEDS: Lisinopril 20 MG TABLET PO SCH ×2 (08:39→21:34)
[2019-07-21] MEDS: Sucralfate 1 GM TABLET PO SCH ×4 (05:18→21:26)
[2019-07-21] MEDS: *HR* Enoxaparin 100 MG/ML SYRINGE SQ SCH ×2 (05:18→17:32)
[2019-07-21] MEDS: Cholecalciferol (D-3) 1,000 UNIT (25MCG) TABLET PO SCH (08:30)
[2019-07-21] MEDS: Lisinopril 20 MG TABLET PO SCH ×2 (08:30→21:26)
[2019-07-21] MEDS: *HR* Glimepiride 2 MG TABLET PO SCH ×2 (08:31→21:27)
[2019-07-21] MEDS: Ascorbic Acid 500 MG TABLET PO SCH ×2 (08:31→21:26)
[2019-07-21] MEDS: amLODIPine 5 MG TABLET PO SCH (08:31)
[2019-07-21] MEDS: [UNRECOGNIZED DRUG - OTHER] PO SCH ×2 (08:32→21:27)
[2019-07-21] MEDS: Insulin LISPRO 300 UNITS/3 ML VIAL SQ SCH ×4 (08:35→21:27)
[2019-07-22] MEDS: Sucralfate 1 GM TABLET PO SCH ×4 (06:15→21:03)
[2019-07-22] MEDS: *HR* Enoxaparin 100 MG/ML SYRINGE SQ SCH ×2 (06:16→17:17)
[2019-07-22] MEDS: Insulin LISPRO 300 UNITS/3 ML VIAL SQ SCH ×4 (08:35→21:03)
[2019-07-22] MEDS: Lisinopril 20 MG TABLET PO SCH ×2 (08:37→21:01)
[2019-07-22] MEDS: *HR* Glimepiride 2 MG TABLET PO SCH ×2 (08:37→21:00)
[2019-07-22] MEDS: amLODIPine 5 MG TABLET PO SCH (08:37)
[2019-07-22] MEDS: Ascorbic Acid 500 MG TABLET PO SCH ×2 (08:37→21:01)
[2019-07-22] MEDS: Cholecalciferol (D-3) 1,000 UNIT (25MCG) TABLET PO SCH (08:37)
[2019-07-22] MEDS: [UNRECOGNIZED DRUG - OTHER] PO SCH ×2 (08:38→21:03)
[2019-07-23] MEDS: *HR* Enoxaparin 100 MG/ML SYRINGE SQ SCH ×2 (05:25→18:05)
[2019-07-23] MEDS: Sucralfate 1 GM TABLET PO SCH ×4 (05:27→21:29)
[2019-07-23] MEDS: Insulin LISPRO 300 UNITS/3 ML VIAL SQ SCH ×4 (08:59→21:30)
[2019-07-23] MEDS: Cholecalciferol (D-3) 1,000 UNIT (25MCG) TABLET PO SCH (09:02)
[2019-07-23] MEDS: Ascorbic Acid 500 MG TABLET PO SCH ×2 (09:02→21:27)
[2019-07-23] MEDS: amLODIPine 5 MG TABLET PO SCH (09:02)
[2019-07-23] MEDS: [UNRECOGNIZED DRUG - OTHER] PO SCH ×2 (09:02→21:30)
[2019-07-23] MEDS: Lisinopril 20 MG TABLET PO SCH ×2 (09:02→21:27)
[2019-07-23] MEDS: *HR* Glimepiride 2 MG TABLET PO SCH ×2 (09:02→21:26)
[2019-07-23 16:46] LABS: Basophils % 0.5 %; Hematocrit 25.2 % (37.5-50.1); Immature Granulocytes % 0.5 % (0-4); Lymphocytes % 15.1 %; Mean Corpuscular HGB Conc 31.7 g/dL (31.6-35.5); Mean Corpuscular Hemoglobin 30.5 pg (28.0-33.3); Mean Corpuscular Volume 96.2 fL (83.0-100.0); Mean Platelet Volume 9.9 fL (9.4-12.4); Monocytes # 0.8 K/mcL (0.0-1.3); Monocytes % 12.3 %; Neutrophils # 4.7 K/mcL (1.6-8.9); Platelet Count 206 K/mcL (140-400); Red Blood Count 2.62 M/mcL (4.19-5.50); Red Cell Distribution Width 14.1 % (11.5-14.5); Segmented Neutrophils % 71.6 %; White Blood Count 6.6 K/mcL (4.3-11.1)
[2019-07-23 17:05] LABS: BUN/Creatinine Ratio 25 (6-26); Blood Urea Nitrogen 25 mg/dL (8-23); Calcium 8.5 mg/dL (8.6-10.3); Carbon Dioxide 26 mEq/L (23-29); Chloride 100 mEq/L (98-107); Glucose 331 mg/dL (70-105); Osmolality,Calculated 291 (280-300); Potassium 4.4 mEq/L (3.5-5.1); Sodium 132 mEq/L (136-145); eGFR For African Americans > 60 (> 60); eGFR For Non-African Americans > 60 (> 60)
[2019-07-23] MEDS: Acetaminophen 325 MG TABLET PO PRN (18:02)
[2019-07-23 19:07] LABS: Adenovirus Not Detected (Not Detect); Coronavirus 229E Not Detected (Not Detect); Coronavirus HKU1 Not Detected (Not Detect); Coronavirus NL63 Not Detected (Not Detect); Coronavirus OC43 Not Detected (Not Detect); Human Metapneumovirus Not Detected (Not Detect); Human Rhinovirus/Enterovirus Not Detected (Not Detect)
[2019-07-23 19:10] LABS: Bordetella Pertussis Not Detected (Not Detect); Chlamydophila pneumoniae Not Detected (Not Detect); Influenza A Subtype 2009 H1 DETECTED (Not Detect); Influenza B Not Detected (Not Detect); Mycoplasma pneumoniae Not Detected (Not Detect); Parainfluenza Virus 1 Not Detected (Not Detect); Parainfluenza Virus 2 Not Detected (Not Detect); Parainfluenza Virus 3 Not Detected (Not Detect); Parainfluenza Virus 4 Not Detected (Not Detect); Respiratory Syncytial Virus Not Detected (Not Detect)
[2019-07-24] MEDS: *HR* Enoxaparin 100 MG/ML SYRINGE SQ SCH ×2 (05:14→17:21)
[2019-07-24] MEDS: Sucralfate 1 GM TABLET PO SCH ×4 (05:16→21:38)
[2019-07-24 06:04] LABS: Basophils % 0.7 %; Eosinophils % 0.4 %; Hematocrit 26.4 % (37.5-50.1); Hemoglobin 8.5 g/dL (12.9-16.9); Immature Granulocytes % 0.4 % (0-4); Lymphocytes # 1.1 K/mcL (0.6-4.6); Mean Corpuscular HGB Conc 32.2 g/dL (31.6-35.5); Mean Corpuscular Volume 96.4 fL (83.0-100.0); Mean Platelet Volume 10.5 fL (9.4-12.4); Monocytes # 0.9 K/mcL (0.0-1.3); Monocytes % 15.7 %; Neutrophils # 3.5 K/mcL (1.6-8.9); Platelet Count 215 K/mcL (140-400); Red Blood Count 2.74 M/mcL (4.19-5.50); Red Cell Distribution Width 14.3 % (11.5-14.5); Segmented Neutrophils % 62.8 %; White Blood Count 5.6 K/mcL (4.3-11.1)
[2019-07-24 06:20] LABS: BUN/Creatinine Ratio 24 (6-26); Blood Urea Nitrogen 21 mg/dL (8-23); Calcium 8.5 mg/dL (8.6-10.3); Carbon Dioxide 26 mEq/L (23-29); Chloride 102 mEq/L (98-107); Glucose 102 mg/dL (70-105); Osmolality,Calculated 283 (280-300); Potassium 3.8 mEq/L (3.5-5.1); Sodium 135 mEq/L (136-145); eGFR For African Americans > 60 (> 60); eGFR For Non-African Americans > 60 (> 60)
[2019-07-24] MEDS: Insulin LISPRO 300 UNITS/3 ML VIAL SQ SCH ×4 (09:08→21:41)
[2019-07-24] MEDS: amLODIPine 5 MG TABLET PO SCH (09:39)
[2019-07-24] MEDS: Cholecalciferol (D-3) 1,000 UNIT (25MCG) TABLET PO SCH (09:39)
[2019-07-24] MEDS: Ascorbic Acid 500 MG TABLET PO SCH ×2 (09:39→21:38)
[2019-07-24] MEDS: *HR* Glimepiride 2 MG TABLET PO SCH ×2 (09:40→21:36)
[2019-07-24] MEDS: Lisinopril 20 MG TABLET PO SCH ×2 (09:40→21:36)
[2019-07-24] MEDS: [UNRECOGNIZED DRUG - OTHER] PO SCH ×2 (09:40→21:40)
[2019-07-24 14:00] LABS: C-Reactive Protein 69 mg/L (Less than 10)
[2019-07-24] MEDS: Furosemide 20 MG TABLET PO SCH (16:41)
[2019-07-24] MEDS: Acetaminophen 325 MG TABLET PO PRN (21:37)
[2019-07-25] MEDS: Sucralfate 1 GM TABLET PO SCH ×4 (05:08→21:47)
[2019-07-25] MEDS: Ondansetron ODT 4 MG TAB.RAPDIS SL PRN (08:03)
[2019-07-25] MEDS: *HR* Enoxaparin 100 MG/ML SYRINGE SQ SCH ×4 (08:06→11:48)
[2019-07-25] MEDS: *HR* Glimepiride 2 MG TABLET PO SCH ×2 (08:06→11:31)
[2019-07-25] MEDS: Insulin LISPRO 300 UNITS/3 ML VIAL SQ SCH ×4 (08:06→23:08)
[2019-07-25] MEDS: Lisinopril 20 MG TABLET PO SCH ×2 (09:47→21:47)
[2019-07-25] MEDS: amLODIPine 5 MG TABLET PO SCH (09:47)
[2019-07-25] MEDS: Cholecalciferol (D-3) 1,000 UNIT (25MCG) TABLET PO SCH (09:47)
[2019-07-25] MEDS: Furosemide 20 MG TABLET PO SCH (09:49)
[2019-07-25] MEDS: Ascorbic Acid 500 MG TABLET PO SCH ×2 (09:49→21:46)
[2019-07-25] MEDS: [UNRECOGNIZED DRUG - OTHER] PO SCH ×2 (09:50→21:48)
[2019-07-26] MEDS: amLODIPine 5 MG TABLET PO SCH (05:43)
[2019-07-26] MEDS: Furosemide 20 MG TABLET PO SCH (05:44)
[2019-07-26] MEDS: Lisinopril 20 MG TABLET PO SCH ×2 (05:52→22:27)
[2019-07-26] MEDS: Sucralfate 1 GM TABLET PO SCH ×4 (07:56→22:28)
[2019-07-26] MEDS: Insulin LISPRO 300 UNITS/3 ML VIAL SQ SCH ×4 (07:56→22:02)
[2019-07-26] MEDS: Ascorbic Acid 500 MG TABLET PO SCH ×2 (08:01→22:27)
[2019-07-26] MEDS: [UNRECOGNIZED DRUG - OTHER] PO SCH ×2 (08:01→22:28)
[2019-07-26] MEDS: Cholecalciferol (D-3) 1,000 UNIT (25MCG) TABLET PO SCH (08:03)
[2019-07-26] MEDS ORDERED: Warfarin perPT PO PRN (12:30)
[2019-07-26 13:26] LABS: Basophils % 0.2 %; Eosinophils % 0.2 %; Hematocrit 25.9 % (37.5-50.1); Hemoglobin 8.2 g/dL (12.9-16.9); Immature Granulocytes % 0.4 % (0-4); Lymphocytes # 1.2 K/mcL (0.6-4.6); Mean Corpuscular HGB Conc 31.7 g/dL (31.6-35.5); Mean Corpuscular Hemoglobin 30.7 pg (28.0-33.3); Mean Platelet Volume 9.8 fL (9.4-12.4); Monocytes # 0.6 K/mcL (0.0-1.3); Platelet Count 176 K/mcL (140-400); Red Blood Count 2.67 M/mcL (4.19-5.50); Red Cell Distribution Width 14.1 % (11.5-14.5); Segmented Neutrophils % 62.2 %; White Blood Count 4.8 K/mcL (4.3-11.1)
[2019-07-26 13:32] LABS: INR 1.3; Prothrombin Time 14.7 Seconds (9.4-12.1)
[2019-07-26 13:57] LABS: BUN/Creatinine Ratio 26 (6-26); Blood Urea Nitrogen 25 mg/dL (8-23); Calcium 8.1 mg/dL (8.6-10.3); Carbon Dioxide 27 mEq/L (23-29); Chloride 100 mEq/L (98-107); Glucose 194 mg/dL (70-105); Osmolality,Calculated 288 (280-300); Potassium 4.1 mEq/L (3.5-5.1); Sodium 134 mEq/L (136-145); eGFR For African Americans > 60 (> 60); eGFR For Non-African Americans > 60 (> 60)
[2019-07-26] MEDS: *HR* Enoxaparin 100 MG/ML SYRINGE SQ SCH (17:24)
[2019-07-26] MEDS ORDERED: *HR* Warfarin 5 MG TABLET PO ONE (18:00)
[2019-07-26] MEDS: *HR* Glimepiride 2 MG TABLET PO SCH (22:27)
[2019-07-27] MEDS: Sucralfate 1 GM TABLET PO SCH ×4 (05:53→21:42)
[2019-07-27] MEDS: *HR* Enoxaparin 100 MG/ML SYRINGE SQ SCH ×2 (05:53→17:38)
[2019-07-27 07:57] LABS: INR 1.4; Prothrombin Time 15.8 Seconds (9.4-12.1)
[2019-07-27] MEDS: Insulin LISPRO 300 UNITS/3 ML VIAL SQ SCH ×4 (08:41→21:44)
[2019-07-27] MEDS: [UNRECOGNIZED DRUG - OTHER] PO SCH ×2 (09:19→21:42)
[2019-07-27] MEDS: Lisinopril 20 MG TABLET PO SCH ×2 (09:19→21:42)
[2019-07-27] MEDS: Cholecalciferol (D-3) 1,000 UNIT (25MCG) TABLET PO SCH (09:19)
[2019-07-27] MEDS: Ascorbic Acid 500 MG TABLET PO SCH ×2 (09:19→21:42)
[2019-07-27] MEDS: amLODIPine 5 MG TABLET PO SCH (09:19)
[2019-07-27] MEDS: Furosemide 20 MG TABLET PO SCH (09:19)
[2019-07-27] MEDS: *HR* Glimepiride 2 MG TABLET PO SCH ×2 (09:19→21:42)
[2019-07-27] MEDS ORDERED: *HR* Warfarin 5 MG TABLET PO ONE (18:00)
[2019-07-27] MEDS: Ondansetron ODT 4 MG TAB.RAPDIS SL PRN (23:36)
[2019-07-27] MEDS: Acetaminophen 325 MG TABLET PO PRN (23:50)
[2019-07-28] MEDS: *HR* Enoxaparin 100 MG/ML SYRINGE SQ SCH (04:37)
[2019-07-28 05:06] LABS: INR 1.5; Prothrombin Time 16.9 Seconds (9.4-12.1)
[2019-07-28] MEDS: Insulin LISPRO 300 UNITS/3 ML VIAL SQ SCH ×2 (09:38→13:09)
[2019-07-28] MEDS: Ascorbic Acid 500 MG TABLET PO SCH (09:39)
[2019-07-28] MEDS: *HR* Glimepiride 2 MG TABLET PO SCH (09:39)
[2019-07-28] MEDS: Cholecalciferol (D-3) 1,000 UNIT (25MCG) TABLET PO SCH (09:39)
[2019-07-28] MEDS: amLODIPine 5 MG TABLET PO SCH (09:39)
[2019-07-28] MEDS: Lisinopril 20 MG TABLET PO SCH (09:39)
[2019-07-28] MEDS: Furosemide 20 MG TABLET PO SCH (09:40)
[2019-07-28] MEDS: [UNRECOGNIZED DRUG - OTHER] PO SCH (09:40)
[2019-07-28 09:47] VITALS: BP 122/65
[2019-07-28] MEDS: Sucralfate 1 GM TABLET PO SCH ×2 (10:14)
[2019-07-28 11:39] LABS: Basophils % 0.1 %; Hematocrit 27.1 % (37.5-50.1); Hemoglobin 8.6 g/dL (12.9-16.9); Immature Granulocytes % 0.4 % (0-4); Lymphocytes # 1.7 K/mcL (0.6-4.6); Lymphocytes % 15.1 %; Mean Corpuscular HGB Conc 31.7 g/dL (31.6-35.5); Mean Corpuscular Hemoglobin 30.4 pg (28.0-33.3); Mean Corpuscular Volume 95.8 fL (83.0-100.0); Monocytes # 0.9 K/mcL (0.0-1.3); Monocytes % 8.2 %; Neutrophils # 8.5 K/mcL (1.6-8.9); Platelet Count 212 K/mcL (140-400); Red Blood Count 2.83 M/mcL (4.19-5.50); Red Cell Distribution Width 13.7 % (11.5-14.5); Segmented Neutrophils % 76.2 %; White Blood Count 11.1 K/mcL (4.3-11.1)
[2019-07-28 11:53] LABS: BUN/Creatinine Ratio 23 (6-26); Blood Urea Nitrogen 24 mg/dL (8-23); Calcium 8.3 mg/dL (8.6-10.3); Carbon Dioxide 25 mEq/L (23-29); Chloride 99 mEq/L (98-107); Glucose 354 mg/dL (70-105); Osmolality,Calculated 294 (280-300); Potassium 4.7 mEq/L (3.5-5.1); Sodium 133 mEq/L (136-145); eGFR For African Americans > 60 (> 60); eGFR For Non-African Americans > 60 (> 60)
[2019-07-28] MEDS ORDERED: *HR* Warfarin 3 MG TABLET PO SCH (18:00)
== END 2019-07-28 18:00 | DRG 949 ==
LOC: INPGRE 14:50
PROVIDERS: ADMIT Family Medicine; ATTEND Family Medicine